=== PATIENT | female | born 1970 | race Caucasian/White ===

== ENCOUNTER 2017-10-04 10:22 | Emergency (ER) | payer BC ==
[~2017-10-04] VITALS: Wt 75.8 kg
[2017-10-04] MEDS ORDERED: KETOROLAC 30 MG INJ IV STA (11:23)
[2017-10-04] MEDS ORDERED: KETOROLAC 30 MG INJ IM STA (11:37)
[2017-10-04 11:51] LABS: BASOPHILS % 0.8 % (0.0-2.0); EOSINOPHILS # 0.1 10^3/ul (0.0-0.5); EOSINOPHILS % 1.9 % (0.0-7.0); HEMATOCRIT 37.6 % (37.0-47.0); HEMOGLOBIN 12.6 g/dl (12.0-16.0); LYMPHOCYTES # 1.6 10^3/ul (0.8-2.9); LYMPHOCYTES % 29.9 % (15.0-51.0); MEAN CORPUSCULAR HEMOGLOBIN 28.8 pg (29.0-33.0); MEAN CORPUSCULAR HGB CONC 33.5 g/dl (32.0-37.0); MEAN CORPUSCULAR VOLUME 85.8 fl (82.0-101.0); MEAN PLATELET VOLUME 9.2 fl (7.4-10.4); MONOCYTE # 0.4 10^3/ul (0.3-0.9); MONOCYTES % 8.5 % (0.0-11.0); NEUTROPHILS % 58.5 % (39.0-77.0); PLATELET COUNT 293 10^3/UL (140-415); RED BLOOD COUNT 4.38 10^6/ul (4.20-5.40); RED CELL DISTRIBUTION WIDTH 16.6 % (11.5-14.5); WHITE BLOOD COUNT 5.2 10^3/ul (4.8-10.8)
--- NOTE | 2017-10-04 11:52 | ERD ---
ER Documentation Chief Complaint Chief Complaint VAG BLEEDING X1 MONTH, NO PAIN REPORTED HPI This a 47-year-old female presents the emergency department today with her daughter complaining of vaginal bleeding for the past month she has a history of anemia and takes iron pills. States that she did see her doctor who gave her oral contraceptive pills but they are not helping. States that the doctor that given to her is Dr. Jb Fatima that she is unsure if there are specialist or not. States she does have some lower pelvic pain and has some dizziness. Denies any fevers or chills. ROS All systems reviewed and are negative except as per history of present illness. Medications Home Meds Active Scripts Medroxyprogesterone Acetate* (Provera*) 10 Mg Tablet, 10 MG PO DAILY for 5 Days , TAB Prov:RAGHU US PA-C 10/04/17 Naproxen* (Naprosyn*) 500 Mg Tablet, 500 MG PO BID Y for PAIN AND/OR INFLAMMATION, #30 TAB Prov:RAGHU US PA-C 10/04/17 PMhx/Soc History of Surgery: No Anesthesia Reaction: No Hx Neurological Disorder: No Hx Respiratory Disorders: No Hx Cardiac Disorders: No Hx Psychiatric Problems: No Hx Miscellaneous Medical Probl: No Hx Alcohol Use: No Hx Substance Use: No Hx Tobacco Use: No Smoking Status: Never smoker Physical Exam Vitals Vital Signs Date Time Temp Pulse Resp B/P Pulse Ox O2 Delivery O2 Flow Rate FiO2 10/04/17 10:28 98.5 79 17 143/77 98 Physical Exam Const: NAD Head: Atraumatic Eyes: Normal Conjunctiva ENT: Normal External Ears, Nose and Mouth. Neck: Full range of motion..~ No meningismus. Resp: Clear to auscultation bilaterally Cardio: Regular rate and rhythm, no murmurs Abd: Soft, lower pelvic tenderness non distended. Normal bowel sounds. No tenderness at McBurney's Skin: No petechiae or rashes Back: No midline or flank tenderness Ext: No cyanosis, or edema Neur: Awake and alert Psych: Normal Mood and Affect Result Diagram: 10/04/17 1130 10/04/17 1130 Results 24 hrs Laboratory Tests Test 10/04/17 11:30 10/04/17 11:41 White Blood Count 5.210^3/ul Red Blood Count 4.3810^6/ul Hemoglobin 12.6g/dl Hematocrit 37.6% Mean Corpuscular Volume 85.8fl Mean Corpuscular Hemoglobin 28.8pg Mean Corpuscular Hemoglobin Concent 33.5g/dl Red Cell Distribution Width 16.6% Platelet Count 21917^3/UL Mean Platelet Volume 9.2fl Neutrophils % 58.5% Lymphocytes % 29.9% Monocytes % 8.5% Eosinophils % 1.9% Basophils % 0.8% Nucleated Red Blood Cells % 0.0/100WBC Neutrophils # 3.010^3/ul Lymphocytes # 1.610^3/ul Monocytes # 0.410^3/ul Eosinophils # 0.110^3/ul Basophils # 0.010^3/ul Nucleated Red Blood Cells # 0.010^3/ul Sodium Level 143mmol/L Potassium Level 4.1mmol/L Chloride Level 106mmol/L Carbon Dioxide Level 27mmol/L Anion Gap 14 Blood Urea Nitrogen 7mg/dl Creatinine 0.53mg/dl Glucose Level 111mg/dl Calcium Level 9.3mg/dl Total Bilirubin 0.2mg/dl Direct Bilirubin 0.00mg/dl Indirect Bilirubin 0.2mg/dl Aspartate Amino Transf (AST/SGOT) 38IU/L Alanine Aminotransferase (ALT/SGPT) 50IU/L Alkaline Phosphatase 41IU/L Total Protein 7.6g/dl Albumin 4.2g/dl Globulin 3.40g/dl Albumin/Globulin Ratio 1.23 Urine Color YELLOW Urine Clarity CLEAR Urine pH 6.0 Urine Specific [place] 1.012 Urine Ketones NEGATIVEmg/dL Urine Nitrite NEGATIVEmg/dL Urine Bilirubin NEGATIVEmg/dL Urine Urobilinogen NEGATIVEmg/dL Urine Leukocyte Esterase NEGATIVELeu/ul Urine Microscopic RBC 169/HPF Urine Microscopic WBC 6/HPF Urine Mucus FEW/HPF Urine Hemoglobin 3+mg/dL Urine Glucose 1+mg/dL Urine Total Protein NEGATIVEmg/dl Current Medications Medications (Trade) Dose Ordered Sig/Giovanna Route PRN Reason Start Time Stop Time Status Last Admin Dose Admin Ketorolac Tromethamine (Toradol) 30 mg ONCE STAT IV 10/04/17 11:23 10/04/17 11:38 DC 10/04/17 11:43 Ketorolac Tromethamine (Toradol) 30 mg ONCE STAT IM 10/04/17 11:37 10/04/17 11:38 DC 10/04/17 11:43 DIAGNOSTIC IMAGING REPORT Patient: CASTRO PACE : 1970 Age: 47 Sex: F MR #: [id number] DOS: 10/04/17 0000 Ordering MD: RAGHU US PA-C Location: [facility] Room/Bed: PROCEDURE: US Pelvis. CLINICAL INDICATION: Heavy vaginal bleeding for 1 month. TECHNIQUE: The pelvis was evaluated with transabdominal and transvaginal sonography in the axial and sagittal planes. COMPARISON: No prior study is available for comparison. FINDINGS: Uterus: 8.1 x 6.2 x 7.4 cm. Endometrium: 10.7 mm. Right ovary: 3.7 x 1.8 x 2.1 cm. Left ovary: 3.1 x 1.8 x 2.2 cm. Uterine masses: None. The uterus is mildly heterogeneous. Ovarian masses: None. Color Doppler and pulsed Doppler sonography demonstrate normal flow to the ovaries. Other pelvic masses: None. Free fluid: A small amount of free fluid is present in the cul-de-sac. IMPRESSION: 1. Mildly heterogeneous uterus with no discrete mass. 2. Small amount of free fluid in the cul-de-sac, likely physiologic. 3. Otherwise unremarkable pelvic ultrasound. RPTAT: QQ .Eduardo Collins MD MD Date Time Electronically viewed and signed by .Eduardo Collins MD, MD on 10/04/2017 13:12 .R/ CC: RAGHU US PA-C Procedures/MDM This is a 47-year-old female who presents the emergency department today complaining of vaginal bleeding for the past month. Patient has been recently followed by a doctor who gave her oral contraceptive pills but they are not helping. States she is using approximately 3 pads a day and has passed some large clots. Patient is afebrile and otherwise well-appearing however given her history of anemia and physical exam I did obtain laboratory workup as well as imaging. Laboratory workup shows no elevated white blood cell count. Patient is not anemic. Platelets are within normal limits. Electrolytes are within normal limits. Glucose is within normal limits. Liver enzymes are within normal limits. UA shows 169 microscopic red blood cells otherwise negative for infection. Urine test is negative Pelvic ultrasound is a mildly heterogeneous uterus with no discrete mass. There is a small amount of free fluid in the cul-de-sac that is likely physiologic. Otherwise unremarkable. Patient was given Toradol here in the emergency department. Patient is not anemic and there is no indication for transfusion at this time. Patient symptoms at this time is consistent with vaginal bleeding likely dysfunctional uterine bleeding and hormone related. I have explained this to the patient. I explained to the patient that she does need to follow back up with her doctor. I discussed the patient with Dr. Pierre and he recommended patient be given Provera for 5 days. Patient has been instructed to stop taking the last 2 days of her oral contraceptive pills and may take the Provera instead however she does need a follow-up next week back with her primary care doctor and gynecology specialist. At this time there is no indication for acute surgical abdomen. She was also given a prescription for Naprosyn. At this time the patient is stable for discharge and outpatient management. Patient should follow up with their PCP in the next 1-2 days. They may return to the emergency department sooner for any persistent or worsening of symptoms. Patient understood and agreed with the plan. Departure Diagnosis: Primary Impression: Vaginal bleeding Condition: RAGHU Byrne PA-C Oct 04, 2017 11:52
[2017-10-04 11:58] LABS: ADD UMIC YES; UR ASCORBIC ACID NEGATIVE (NEGATIVE); UR BILIRUBIN (Dip) NEGATIVE (NEGATIVE); UR BLOOD (Dip) 3+ mg/dL (NEGATIVE); UR CLARITY CLEAR (CLEAR); UR COLOR YELLOW (YELLOW); UR GLUCOSE (Dip) 1+ mg/dL (NEGATIVE); UR KETONES (Dip) NEGATIVE (NEGATIVE); UR LEUKOCYTE ESTERASE (Dip) NEGATIVE Leu/ul (NEGATIVE); UR MUCUS FEW /HPF (NONE SEEN); UR NITRITE (Dip) NEGATIVE (NEGATIVE); UR RBC 169 /HPF (0-5); UR SPECIFIC GRAVITY (Dip) 1.012 (1.003-1.030); UR TOTAL PROTEIN (Dip) NEGATIVE (NEGATIVE); UR UROBILINOGEN (Dip) NEGATIVE (NEGATIVE)
[2017-10-04 12:12] LABS: ALBUMIN 4.2 g/dl (3.3-4.9); ALBUMIN/GLOBULIN RATIO 1.23; BILIRUBIN,INDIRECT 0.2 mg/dl (0-1.1); BILIRUBIN,TOTAL 0.2 mg/dl (0.2-1.3); CALCIUM 9.3 mg/dl (8.4-10.2); CREATININE 0.53 mg/dl (0.44-1.00); POTASSIUM 4.1 mmol/L (3.5-5.1); TOTAL PROTEIN 7.6 g/dl (6.1-8.1)
--- NOTE | 2017-10-04 13:13 | RADRPT ---
PROCEDURE: US Pelvis. CLINICAL INDICATION: Heavy vaginal bleeding for 1 month. TECHNIQUE: The pelvis was evaluated with transabdominal and transvaginal sonography in the axial a nd sagittal planes. COMPARISON: No prior study is available for comparison. FINDINGS: Uterus: 8.1 x 6.2 x 7.4 cm. Endometrium: 10.7 mm. Right ovary: 3.7 x 1.8 x 2.1 cm. Left ovary: 3.1 x 1.8 x 2.2 cm. Uterine masses: None. The uterus is mildly heterogeneous. Ovarian masses: None. Color Doppler and pulsed Doppler sonography demonstrate normal flow to the ova bashir. Other pelvic masses: None. Free fluid: A small amount of free fluid is present in the cul-de-sac. IMPRESSION: 1. Mildly heterogeneous uterus with no discrete mass. 2. Small amount of free fluid in the cul-de-sac, likely physiologic. 3. Otherwise unremarkable pelvic ultrasound. RPTAT: QQ .Eduardo Collins MD, MD Date Time Electronically viewed and signed by .Eduardo Collins MD, on 10/04/2017 13:12 .R/
[2017-10-04] MEDS ORDERED: NAPR-260 PO (13:54)
[2017-10-04] MEDS ORDERED: MEDR10TA2 PO (13:55)
== END 2017-10-04 14:11 | disposition home or self-care (01) ==
LOC: FTE 10:22
DX: N93.8 Other specified abnormal uterine and vaginal bleeding (principal)
CPT/HCPCS: 76830; 76856; 80053; 81001; 85025; 96372; 96374; 99285; J1885